=== PATIENT | female | born 1965 | race African-American/Black ===

== ENCOUNTER 2016-04-07 10:08 | Emergency (ER) | payer OTHER ==
[2009-11-28 08:59] VITALS: BMI 34.2
[2016-04-07 11:16] LABS: BASOPHILS 0.2 % (0.0-2.0); HEMATOCRIT 26.6 % (36.0-48.0); IMMATURE GRANULOCYTES 0.3 % (0-5); LYMPHOCYTES 32.4 % (15-50); MCHC 27.8 g/dL (31.0-37.0); MCV 63.9 fL (80.0-100.0); NEUTROPHILS 60.1 % (40-80); PLATELET COUNT 252 10x3/uL (130-400); RBC 4.16 10x6/uL (4.00-5.40); RDW 20.5 % (11.5-14.5); WBC 6.6 10x3/uL (4.8-10.8)
[2016-04-07 11:21] LABS: MCH 17.8 pg (26.0-34.0)
[2016-04-07 11:22] LABS: HEMOGLOBIN 7.4 g/dL (12-16)
[2016-04-07 11:56] LABS: ALBUMIN 3.4 g/dL (3.4-5.0); ALKALINE PHOSPHATASE 110 U/L (46-116); ALT (SGPT) 17 U/L (10-68); BILIRUBIN - TOTAL 0.31 mg/dL (0.2-1.3); CARBON DIOXIDE 22.7 mmol/L (21.0-32.0); CHLORIDE - SERUM 108 mmol/L (98-107); CREATININE - SERUM 0.7 mg/dL (0.6-1.3); GLUCOSE 83 mg/dL (74-106); POTASSIUM - SERUM 3.5 mmol/L (3.5-5.1); PROTEIN - SERUM 7.4 g/dL (6.4-8.2); SODIUM 144 mmol/L (136-145); eGFR NON AFRICAN AMERICAN > 90 mL/min (90-120)
[2016-04-07 11:57] LABS: CALC OSMOLALITY 284 mosm/kg (275-300); TROPONIN-I < 0.017 ng/mL (0.000-0.060); UREA NITROGEN 9 mg/dL (7-18)
== END 2016-04-07 12:14 | disposition home or self-care (01) ==
LOC: D.ER 10:08
PROVIDERS: Physician Assistant
DX: F41.9 Anxiety disorder, unspecified (principal); D50.9 Iron deficiency anemia, unspecified; F17.200 Nicotine dependence, unspecified, uncomplicated

== ENCOUNTER 2016-06-23 11:23 | Emergency (ER) | payer OTHER ==
[2009-11-28 08:59] VITALS: BMI 34.2
== END 2016-06-23 12:31 | disposition home or self-care (01) ==
LOC: D.ER 11:23
DX: L73.9 Follicular disorder, unspecified (principal)

== ENCOUNTER 2016-06-28 21:04 | Emergency (ER) | payer OTHER ==
[2009-11-28 08:59] VITALS: BMI 34.2
== END 2016-06-28 23:55 | disposition home or self-care (01) ==
LOC: D.ER 21:04
DX: S90.31XA Contusion of right foot, initial encounter (principal); X58.XXXA Exposure to other specified factors, initial encounter; Y93.89 Activity, other specified; Y92.89 Other specified places as the place of occurrence of the external cause; S93.601A Unspecified sprain of right foot, initial encounter; D50.9 Iron deficiency anemia, unspecified; F17.200 Nicotine dependence, unspecified, uncomplicated

== ENCOUNTER 2016-08-12 15:02 | Emergency (ER) | payer OTHER ==
[2009-11-28 08:59] VITALS: BMI 34.2
[2016-08-12 15:46] LABS: BASOPHILS 0.2 % (0-2); HEMATOCRIT 28.9 % (36.0-48.0); HEMOGLOBIN 8.1 g/dL (12-16); IMMATURE GRANULOCYTES 0.2 % (0-5); LYMPHOCYTES 30.1 % (15-50); MCV 66.9 fL (80.0-100.0); MEAN PLATELET VOLUME 9.6 fL (7.4-10.4); MONOCYTES 5.9 % (2-11); NEUTROPHILS 61.6 % (40-80); PLATELET COUNT 239 10x3/uL (130-400); RBC 4.32 10x6/uL (4.00-5.40); RDW 19.3 % (11.5-14.5); WBC 5.9 10x3/uL (4.8-10.8)
[2016-08-12 15:50] LABS: MCH 18.8 pg (26.0-34.0)
[2016-08-12 15:52] LABS: APPEARANCE SLT CLOUDY (CLEAR); COLOR YELLOW (YELLOW)
[2016-08-12 15:53] LABS: BILIRUBIN NEGATIVE (NEGATIVE); GLUCOSE NEGATIVE (NEGATIVE); KETONE NEGATIVE (NEGATIVE); LEUKOCYTE ESTERASE NEGATIVE (NEGATIVE); NITRITE NEGATIVE (NEGATIVE); PROTEIN TRACE mg/dL (NEGATIVE); SPECIFIC GRAVITY 1.015 (1.005-1.020); UROBILINOGEN NORMAL (NORMAL)
[2016-08-12 15:55] LABS: BACTERIA FEW /hpf (NONE SEEN); WHITE CELLS - URINE 0-5 /hpf (0-5)
[2016-08-12 16:09] LABS: CALC OSMOLALITY 284 mosm/kg (275-300); CALCIUM 9.1 mg/dL (8.5-10.1); CARBON DIOXIDE 26.2 mmol/L (21.0-32.0); CHLORIDE - SERUM 110 mmol/L (98-107); CREATININE - SERUM 0.8 mg/dL (0.6-1.3); GLUCOSE 88 mg/dL (74-106); POTASSIUM - SERUM 3.6 mmol/L (3.5-5.1); SODIUM 144 mmol/L (136-145); UREA NITROGEN 9 mg/dL (7-18); eGFR NON AFRICAN AMERICAN 81 mL/min (90-120)
== END 2016-08-12 17:35 | disposition home or self-care (01) ==
LOC: D.ER 15:02
PROVIDERS: Nurse Practitioner Acute Care
DX: K64.8 Other hemorrhoids (principal); F17.200 Nicotine dependence, unspecified, uncomplicated

== ENCOUNTER 2016-08-25 18:00 | Emergency (ER) | payer MEDICAID ==
[2009-11-28 08:59] VITALS: BMI 34.2
[2016-08-25 18:33] LABS: APPEARANCE CLEAR (CLEAR); BILIRUBIN NEGATIVE (NEGATIVE); COLOR YELLOW (YELLOW); GLUCOSE NEGATIVE (NEGATIVE); KETONE NEGATIVE (NEGATIVE); LEUKOCYTE ESTERASE NEGATIVE (NEGATIVE); NITRITE NEGATIVE (NEGATIVE); PROTEIN NEGATIVE (NEGATIVE); SPECIFIC GRAVITY 1.015 (1.005-1.020); UROBILINOGEN NORMAL (NORMAL)
[2016-08-25 18:41] LABS: BASOPHILS 0.2 % (0-2); EOSINOPHILS 1.7 % (0-7); HEMATOCRIT 29.3 % (36.0-48.0); HEMOGLOBIN 8.2 g/dL (12-16); IMMATURE GRANULOCYTES 0.2 % (0-5); LYMPHOCYTES 44.9 % (15-50); MCV 65.1 fL (80.0-100.0); MEAN PLATELET VOLUME 9.7 fL (7.4-10.4); MONOCYTES 4.8 % (2-11); NEUTROPHILS 48.2 % (40-80); RDW 19.1 % (11.5-14.5); WBC 6.6 10x3/uL (4.8-10.8)
[2016-08-25 18:53] LABS: MCH 18.2 pg (26.0-34.0); PLATELET COUNT 295 10x3/uL (130-400)
[2016-08-25 18:57] LABS: HCG SERUM NEGATIVE (NEGATIVE)
[2016-08-25 18:59] LABS: ALBUMIN 3.3 g/dL (3.4-5.0); ALKALINE PHOSPHATASE 121 U/L (46-116); ALT (SGPT) 14 U/L (10-68); CALC OSMOLALITY 282 mosm/kg (275-300); CARBON DIOXIDE 22.8 mmol/L (21.0-32.0); CHLORIDE - SERUM 108 mmol/L (98-107); CREATININE - SERUM 0.8 mg/dL (0.6-1.3); GLUCOSE 81 mg/dL (74-106); POTASSIUM - SERUM 3.6 mmol/L (3.5-5.1); PROTEIN - SERUM 7.4 g/dL (6.4-8.2); SODIUM 143 mmol/L (136-145); UREA NITROGEN 11 mg/dL (7-18); eGFR NON AFRICAN AMERICAN 81 mL/min (90-120)
== END 2016-08-25 19:22 | disposition home or self-care (01) ==
LOC: D.ER 18:00
PROVIDERS: Emergency Medicine
DX: N20.1 Calculus of ureter (principal); F17.200 Nicotine dependence, unspecified, uncomplicated

== ENCOUNTER 2016-11-14 05:42 | Emergency (ER) | payer MEDICAID ==
[2009-11-28 08:59] VITALS: BMI 34.2
[2016-11-14 06:30] LABS: HEMATOCRIT 28.7 % (36.0-48.0); MCH 17.9 pg (26.0-34.0); MCHC 27.9 g/dL (31.0-37.0); MCV 64.3 fL (80.0-100.0); PLATELET COUNT 291 10x3/uL (130-400); RBC 4.46 10x6/uL (4.00-5.40)
[2016-11-14 06:31] LABS: APPEARANCE HAZY (CLEAR); BILIRUBIN NEGATIVE (NEGATIVE); COLOR YELLOW (YELLOW); GLUCOSE NEGATIVE (NEGATIVE); KETONE NEGATIVE (NEGATIVE); NITRITE NEGATIVE (NEGATIVE); PROTEIN TRACE mg/dL (NEGATIVE); SPECIFIC GRAVITY 1.025 (1.005-1.020); UROBILINOGEN NORMAL (NORMAL)
[2016-11-14 06:32] LABS: BACTERIA MODERATE /hpf (NONE SEEN); EPITHELIAL CELLS 0-5 /hpf (0-5); WHITE CELLS - URINE 0-5 /hpf (0-5)
[2016-11-14 06:33] LABS: MUCUS >1+ /lpf (NONE SEEN)
[2016-11-14 07:03] LABS: EOSINOPHILS 2 % (0-7); LYMPHOCYTES 56 % (15-50); MONOCYTES 4 % (2-11); NEUTROPHILS 38 % (40-80); PLATELET ESTIMATE NORMAL; PLATELET MORPHOLOGY PLT CLUMPS PRESENT
[2016-11-14 07:32] LABS: ALBUMIN 3.2 g/dL (3.4-5.0); ALKALINE PHOSPHATASE 120 U/L (46-116); ALT (SGPT) 13 U/L (10-68); AMYLASE - SERUM 66 U/L (25-115); BILIRUBIN - TOTAL 0.25 mg/dL (0.2-1.3); CALC OSMOLALITY 288 mosm/kg (275-300); CALCIUM 8.5 mg/dL (8.5-10.1); CARBON DIOXIDE 20.2 mmol/L (21.0-32.0); CHLORIDE - SERUM 111 mmol/L (98-107); CREATININE - SERUM 0.8 mg/dL (0.6-1.3); GLUCOSE 77 mg/dL (74-106); LIPASE 142 U/L (73-393); POTASSIUM - SERUM 3.5 mmol/L (3.5-5.1); PROTEIN - SERUM 6.6 g/dL (6.4-8.2); SODIUM 145 mmol/L (136-145); UREA NITROGEN 16 mg/dL (7-18); eGFR NON AFRICAN AMERICAN 80 mL/min (90-120)
== END 2016-11-14 08:52 | disposition home or self-care (01) ==
LOC: D.ER 05:42
PROVIDERS: Family Medicine
DX: N20.1 Calculus of ureter (principal)